=== PATIENT | female | born 1930 | race Caucasian/White ===

== ENCOUNTER → 2016-11-15 | Outpatient (CLI) | payer MEDICARE | END | disposition home or self-care (01) | LOC: PCVCIMAG 12:29 | PROVIDERS: ATTEND Internal Medicine Cardiovascular Disease | DX: I07.1 Rheumatic tricuspid insufficiency (principal); E78.00 Pure hypercholesterolemia, unspecified; I27.2 Other secondary pulmonary hypertension; J44.9 Chronic obstructive pulmonary disease, unspecified; Z99.81 Dependence on supplemental oxygen | CPT/HCPCS: 80061; 93005; 93306; G0463 ==

== ENCOUNTER → 2017-06-20 | Outpatient (CLI) | payer MEDICARE | END | disposition home or self-care (01) | LOC: PCVCCLINIC 12:56 | PROVIDERS: ATTEND Internal Medicine Cardiovascular Disease | DX: I10 Essential (primary) hypertension (principal); E78.00 Pure hypercholesterolemia, unspecified; J44.9 Chronic obstructive pulmonary disease, unspecified; I27.20 Pulmonary hypertension, unspecified; Z87.891 Personal history of nicotine dependence; Z79.899 Other long term (current) drug therapy | CPT/HCPCS: 93005; G0463 ==

== ENCOUNTER → 2018-03-15 | Outpatient (CLI) | payer MEDICARE ==
--- NOTE | 2018-03-15 16:20 | PCVCIMAG ---
APPROVED REPORT Study performed: 03/15/2018 13:03:23 EXAM: Comprehensive 2D, Doppler, and color-flow Echocardiogram Patient Location: Echo lab Status: routine BSA: 1.65 HR: 63 bpmBP: 130/72 mmHg Rhythm: NSR Other Information Study Quality: Adequate Risk Factors: Cardiac Risk Factors: HTN Indications COPD Pulmonary HTN 2D Dimensions LVEF(%): 42.99 (>50%) IVSd: 11.11 (7-11mm) LVDd: 47.07 mm PWd: 9.15 (7-11mm)Ascending Ao: 32.01 (22-36mm) LVDs: 37.11 (25-40mm) Left Atrium: 48.84 (27-40mm) Aortic Root: 29.49 mm LV Single Plane 4CH: 62.32 % LV Single Plane 2CH: 64.01 %Anderson's LVEF: 63.17 % Biplane EF: 63.3 % Volumes Left Atrial Volume (Systole) Single Plane 4CH: 54.19 mLSingle Plane 2CH: 39.66 mL LA ESV Index: 28.00 mL/m2 Aortic Valve AoV Peak Donato.: 1.59 m/s AO Peak Gr.: 10.05 mmHgLVOT Max P.94 mmHg LVOT Max V: 1.11 m/s Mitral Valve E/A Ratio: 0.6 MV Decel. Time: 279.90 ms MV E Max Donato.: 0.55 m/s MV A Donato.: 0.89 m/s IVRT: 107.27 ms Pulmonary Valve PV Peak Donato.: 1.24 m/sPV Peak Gr.: 6.14 mmHg Pulmonary Vein P Vein S: 0.41 m/sP Vein A: 0.35 m/s P Vein D: 0.54 m/sP Vein A Dur.: 121.1 msec P Vein S/D Ratio: 0.76 Tricuspid Valve TR Peak Donato.: 2.96 m/s TR Peak Gr.: 35.13 mmHg Left Ventricle The left ventricle is normal size. Mild septal flattening with increased right sided pressures. There is normal LV segmental wall motion. There is normal left ventricular wall thickness. Left ventricular systolic function is normal. The left ventricular ejection fraction is within the normal range. LVEF is 60-65%. Grade I - abnormal relaxation pattern. Right Ventricle The right ventricle is mildly dilated. The right ventricular systolic function is normal. Atria Left atrium is mildly dilated. Right atrium is mildly dilated. Aortic Valve The aortic valve is normal in structure. Trace aortic regurgitation. There is no aortic valvular stenosis. Mitral Valve The mitral valve is normal in structure. Trace mitral regurgitation. No evidence of mitral valve stenosis. Tricuspid Valve The tricuspid valve is normal in structure. Moderate tricuspid regurgitation with PAP of 42 mmHg. Pulmonic Valve The pulmonary valve is normal in structure. There is no pulmonic valvular regurgitation. Great Vessels The aortic root is normal in size. IVC is normal in size and collapses with >50% inspiration There is moderate pulmonary artery dilation. Pericardium There is no pericardial effusion. <Conclusion> The left ventricle is normal size. Mild septal flattening with increased right sided pressures. LVEF is 60-65%. Grade I - abnormal relaxation pattern. The right ventricle is mildly dilated. The right ventricular systolic function is normal. Left atrium is mildly dilated. Right atrium is mildly dilated. Trace aortic regurgitation. Trace mitral regurgitation. Moderate tricuspid regurgitation with PAP of 42 mmHg. The aortic root is normal in size. There is no pericardial effusion.
== END | disposition home or self-care (01) ==
LOC: PCVCIMAG 15:26
PROVIDERS: ATTEND Internal Medicine Cardiovascular Disease
DX: J44.9 Chronic obstructive pulmonary disease, unspecified (principal); I27.20 Pulmonary hypertension, unspecified; I10 Essential (primary) hypertension; I07.1 Rheumatic tricuspid insufficiency; Z87.891 Personal history of nicotine dependence; Z79.82 Long term (current) use of aspirin
CPT/HCPCS: 93005; 93306; G0463

== ENCOUNTER → 2018-11-28 | Outpatient (CLI) | payer MEDICARE | END | disposition home or self-care (01) | LOC: PCVCCLINIC 13:30 | PROVIDERS: ATTEND Internal Medicine Cardiovascular Disease | DX: E78.5 Hyperlipidemia, unspecified (principal); I10 Essential (primary) hypertension; J44.1 Chronic obstructive pulmonary disease with (acute) exacerbation; R94.31 Abnormal electrocardiogram [ECG] [EKG]; E78.00 Pure hypercholesterolemia, unspecified; I27.20 Pulmonary hypertension, unspecified; R60.9 Edema, unspecified; Z88.2 Allergy status to sulfonamides; Z79.899 Other long term (current) drug therapy; Z87.891 Personal history of nicotine dependence | CPT/HCPCS: 93005; G0463 ==